=== PATIENT | female | born 2000 | race African-American/Black ===

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

== ENCOUNTER 2021-09-24 08:22 | Emergency (ER) | payer BC, SELFPAY ==
[2021-09-24 11:44] LABS: SARS-CoV-2 PCR by NAA Not Detected (NotDetected)
== END 2021-09-24 09:00 | disposition home or self-care (01) ==
LOC: ERS 08:22
DX: Z20.822 Contact with and (suspected) exposure to COVID-19 (principal); F17.290 Nicotine dependence, other tobacco product, uncomplicated
CPT/HCPCS: 99283; U0003; U0005

== ENCOUNTER 2021-10-04 13:25 | Emergency (ER) | payer BC, SELFPAY ==
[2021-10-04 14:44] LABS: #Lymphocytes 0.4 thou/uL (1.20-3.40); #Monocytes 0.3 thou/uL (0.11-0.59); %Eosinophils 0.1 % (0.0-10.0); %Lymphocytes 8.3 % (28.0-48.0); %Monocytes 6.6 % (0.0-4.0); Hemoglobin 9.6 g/dL (12.0-16.0); Mean Corpuscular HGB CONC 30.3 g/dL (32.0-36.0); Mean Corpuscular Hemoglobin 23.2 pg (25.0-35.0); Mean Corpuscular Volume 76.6 fL (78.0-98.0); Mean Platelet Volume 7.3 fL (7.4-10.4); Platelet Count 185 thou/uL (130-400); RBC Distribution Width 16.2 % (11.5-14.5); Red Blood Cell (RBC) Count 4.15 mill/uL (4.00-5.20); White Blood Cell (WBC) Count 4.7 thou/uL (4.8-10.8)
[2021-10-04 14:47] LABS: BHCG - Serum Negative (NEGATIVE); Pregs Control Background? CLEAR/WHITE (CLR/WHITE); Pregs Control Bar Appear? YES (CONTROL BAR)
[2021-10-04 14:57] LABS: ALT (SGPT) 7 U/L (8-55); AST (SGOT) 15 U/L (5-34); Albumin 3.9 g/dL (3.5-5.0); Alkaline Phosphatase 48 U/L (40-100); Anion Gap 7 mmol/L (10-20); BUN (Urea Nitrogen) 7 mg/dL (7.0-18.7); Calc. Creatinine Clearance 0 mL/min (70-130); Calcium 9.1 mg/dL (7.8-10.44); Carbon Dioxide 27 mmol/L (22-29); Chloride 106 mmol/L (98-107); Globulin 2.8 g/dL (2.4-3.5); Potassium 3.7 mmol/L (3.5-5.1); Protein, Total 6.7 g/dL (6.0-8.3); Sodium 136 mmol/L (136-145)
[2021-10-04 14:59] LABS: Glucose 57 mg/dL (70-105)
[2021-10-06 07:46] LABS: SARS-CoV-2 PCR by NAA DETECTED (NotDetected)
== END 2021-10-04 17:34 | disposition home or self-care (01) ==
LOC: ERS 13:25
DX: U07.1 COVID-19 (principal); F17.200 Nicotine dependence, unspecified, uncomplicated
CPT/HCPCS: 36415; 36416; 71045; 80053; 84703; 85025; 93005; U0003; U0005